=== PATIENT | female | born 1945 | race Caucasian/White ===

== ENCOUNTER → 2023-05-13 13:09 | Outpatient (REF) | payer MEDICARE, OTHER, SELFPAY | LOC: RAD 13:09 | PROVIDERS: ATTENDING PHYSICIAN Surgery Vascular Surgery; FAMILY PHYSICIAN Family Medicine | DX: I65.21 Occlusion and stenosis of right carotid artery (principal) | CPT/HCPCS: 93880 ==

== ENCOUNTER 2024-01-17 08:42 | Emergency (ER) | payer MEDICARE, OTHER, SELFPAY ==
[2024-01-17 08:44] VITALS: BP 156/81
--- NOTE | 2024-01-17 09:34 | ED.SKININJ ---
HPI-Injury
General
Chief Complaint: Skin Surface Trauma
Time Seen by Provider: 01/17/24 09:02
History of Present Illness-Injury
Initial Injury comments:
Patient presents to the emergency department with laceration to left index finger using a sharp kitchen knife last night. Injury occurred at 9:30 PM. She dressed with with gauze and tape. Patient not interested in getting her tetanus updated.
Past History
Past History
ED Past Medical History: Cancer (Breast Right), GERD, Hypercholesterolemia, Hypothyroidism and Other (Hypothyroidism, TIA, PNA, Spinal stenosis, Raynaud's Syndrome)
ED Past Surgical History: Cholecystectomy, and Other (3 of 4 Parathyroids removed, Lumpectomy right breast)
Social History
Tobacco: Non-smoker
Alcohol: Occasional
Personal:
Living: with family
Phy Exam
Physical Exam
Physical Exam:
General: No acute distress
Head: NCAT
Neck, Normal in appearance, no swelling
Respiratory: No Respiratory distress
Abdomen: No distension
Ext: no edema
Neuro: ESPINOSA, AOx4
Psych: Normal affect
Skin: Linear well-approximated 3 cm laceration to lateral surface of second digit. Not involving nailbed.
Course
Vital Signs
Initial and Last Documented VS:
Initial Vital Signs
Temp Pulse Resp BP Pulse Ox
97.8 F 69 16 156/81 98
01/17/24 08:44 01/17/24 08:44 01/17/24 08:44 01/17/24 08:44 01/17/24 08:44
Last Documented Vital Signs
Temp Pulse Resp BP Pulse Ox
97.8 F 69 16 156/81 98
01/17/24 08:44 01/17/24 08:44 01/17/24 08:44 01/17/24 08:44 01/17/24 08:44
Procedures
Laceration Closure
Left Second Finger:
Status of Wound: clean
Size of Wound in cm: 3
Description of Wound Edges: sharp
Preparation: cleaned with saline
Revision/Debridement: routine- no revision
Type of Closure: Dermabond-skin glue
*Critical Care Note
Total Time (30-74mins, 75-104mins- exclusive of procedures): Not Applicable
ED Attending Note
ED Attending Note
ED Attending Note:
Laceration repaired with Dermabond. Wound cleansed thoroughly.
-
Portions of this chart may have been created with voice recognition software.� Occasional wrong word or��sound alike� substitutions may have occurred due to the inherent limitations of voice recognition software.
Discharge Plan
Departure
Patient Disposition: Home (Routine Discharge)
Date of Disposition: 01/17/24
Time of Disposition: 09:36
Patient with high blood pressure during this ER visit?: Yes
Discharge Problem:
Finger laceration
Instructions: Laceration Repair With Glue (DC)
Prescriptions:
No Action
aspirin 81 mg Tablet,Delayed Release (Dr/Ec)
81 mg PO QPM
calcium carbonate [Calcium 600] 600 mg calcium (1,500 mg) Tablet
600 mg PO BID
Rx Instructions:
Pt tries to get up to 1200mg of calcium a day, between food and supplement
ascorbic acid (vitamin C) [Vitamin C] 500 mg Tablet
500 mg PO BID
levothyroxine [Synthroid] 125 mcg tablet
62.5 mcg PO DAILY
montelukast 10 mg tablet
10 mg PO HS
cholecalciferol (vitamin D3) [Vitamin D3] 25 mcg (1,000 unit) Tablet
25 mcg PO DAILY
turmeric
1 tab PO DAILY
atorvastatin 40 mg tablet
40 mg PO QPM
Tylenol Extended Release
1,000 mg PO BID
magnesium citrate
300 mg PO HS
clopidogrel 75 mg Tablet
75 mg PO DAILY Qty: 20 0RF
Rx Instructions:
for total of 21 days
oxycodone-acetaminophen [Endocet] 5-325 mg tablet
1 tab PO Q6H PRN (Reason: pain) Qty: 10 0RF
Referrals:
Codey March Jr., DO [Family Provider] -
Interventions
Interventions:
*Risk Screen - Suicide Last Done: 01/17/24 08:58
*General Assessment Last Done: 01/17/24 09:25
*Neglect/Abuse Screening Last Done: 01/17/24 08:58
ED- Fall Risk Assessment Last Done: 01/17/24 08:56
*ED COVID-19 Vaccine History Last Done: 01/17/24 08:58
*Nursing Disposition Last Done: 01/17/24 10:24
ED-Skin Assessment Last Done: 01/17/24 08:56
Discharge Date and Time
Discharge Date/Time: 01/17/24 10:25
Print Language: SLOVENIAN
== END 2024-01-17 10:25 | disposition home or self-care (01) ==
LOC: EMR 08:42
PROVIDERS: EMERGENCY PHYSICIAN Emergency Medicine; FAMILY PHYSICIAN Family Medicine
DX: S61.211A Laceration without foreign body of left index finger without damage to nail, initial encounter (principal); W26.0XXA Contact with knife, initial encounter; E03.9 Hypothyroidism, unspecified; E78.00 Pure hypercholesterolemia, unspecified; Z86.73 Personal history of transient ischemic attack (TIA), and cerebral infarction without residual deficits; Z85.3 Personal history of malignant neoplasm of breast
CPT/HCPCS: 12002; 99282

== ENCOUNTER → 2024-02-23 07:37 | Outpatient (REF) | payer MEDICARE, OTHER, SELFPAY | LOC: PAVMRI 07:37 | PROVIDERS: ATTENDING PHYSICIAN Family Medicine | DX: M48.061 Spinal stenosis, lumbar region without neurogenic claudication (principal) | CPT/HCPCS: 72148 ==

== ENCOUNTER → 2024-03-04 19:28 | Outpatient (REF) | payer MEDICARE, OTHER, SELFPAY | LOC: PAVMRI 19:28 | PROVIDERS: ATTENDING PHYSICIAN Family Medicine | DX: M79.641 Pain in right hand (principal); M54.12 Radiculopathy, cervical region | CPT/HCPCS: 72141; 73218 ==

== ENCOUNTER → 2024-05-13 14:02 | Outpatient (REF) | payer MEDICARE, OTHER, SELFPAY | LOC: HWRAD 14:02 | PROVIDERS: ATTENDING PHYSICIAN Physician Assistant; FAMILY PHYSICIAN Family Medicine; REFERRING PHYSICIAN Internal Medicine | DX: M81.0 Age-related osteoporosis without current pathological fracture (principal); M85.89 Other specified disorders of bone density and structure, multiple sites | CPT/HCPCS: 77080; 77081 ==

== ENCOUNTER → 2024-05-20 15:04 | Outpatient (REF) | payer MEDICARE, OTHER, SELFPAY | LOC: HWRAD 15:04 | PROVIDERS: ATTENDING PHYSICIAN Surgery Vascular Surgery; FAMILY PHYSICIAN Family Medicine | DX: I65.21 Occlusion and stenosis of right carotid artery (principal) | CPT/HCPCS: 93880 ==

== ENCOUNTER 2024-10-29 06:31 | Day surgery (SDC) | payer MEDICARE, OTHER, SELFPAY | END 2024-10-29 14:06 | disposition home or self-care (01) | LOC: GI 06:31 | PROVIDERS: ATTENDING PHYSICIAN Specialist | DX: Z12.11 Encounter for screening for malignant neoplasm of colon (principal); K63.5 Polyp of colon; Z83.710 Family history of adenomatous and serrated polyps | CPT/HCPCS: 45380; 88305 ==

== ENCOUNTER → 2025-01-26 11:55 | Outpatient (REF) | payer MEDICARE, OTHER, SELFPAY | LOC: HWRCS 11:55 | PROVIDERS: ATTENDING PHYSICIAN Internal Medicine Cardiovascular Disease; FAMILY PHYSICIAN Family Medicine | DX: R06.02 Shortness of breath (principal); R07.89 Other chest pain | CPT/HCPCS: 78452; 93017; A9500; J2785 ==

== ENCOUNTER → 2025-02-07 11:29 | Outpatient (REF) | payer MEDICARE, OTHER, SELFPAY | LOC: HWRCS 11:29 | PROVIDERS: ATTENDING PHYSICIAN Internal Medicine Cardiovascular Disease; FAMILY PHYSICIAN Family Medicine | DX: R06.02 Shortness of breath (principal); R07.89 Other chest pain | CPT/HCPCS: 93306 ==